=== PATIENT | female | born 2000 | race Caucasian/White ===

== ENCOUNTER → 2021-10-20 | Outpatient (CLI) | payer OTHER ==
[2021-10-20 14:29] LABS: CLUE CELLS PRESENT (Not Observd)
== END ==
LOC: LAB 09:40
PROVIDERS: Nurse Practitioner
DX: R30.9 Painful micturition, unspecified (principal)
CPT/HCPCS: Q0111

== ENCOUNTER 2022-02-13 18:18 | Emergency (ER) | payer OTHER ==
[~2022-02-13] VITALS: Ht 165.1 cm; Wt 47.3 kg
[2022-02-13 19:46] LABS: URINE WBC 0 /hpf (0-3)
[2022-02-13 20:10] LABS: URINE APPEARANCE CLEAR; URINE BILIRUBIN NEGATIVE (NEGATIVE); URINE BLOOD NEGATIVE (NEGATIVE); URINE COLOR STRAW; URINE GLUCOSE NEGATIVE (NEGATIVE); URINE KETONE NEGATIVE (NEGATIVE); URINE LEUKOCYTE ESTERASE NEGATIVE (NEGATIVE); URINE NITRATE NEGATIVE (NEGATIVE); URINE PROTEIN(semi-quant) NEGATIVE (NEGATIVE); URINE UROBILINOGEN NORMAL (NORMAL)
[2022-02-13 20:34] LABS: BASO # 0.02 K/mm3 (0.02-0.10); EOS % 4.2 % (0.1-4.0); HEMATOCRIT 37.5 % (35.0-45.0); LYMPH# 2.21 K/mm3 (1.20-3.40); MEAN CELL VOLUME 91 fl (78-95); MEAN CORPUSCULAR HEMOGLOBIN 31 pg (26-32); MEAN CORPUSCULAR HGB CONC 35 g/dL (33-37); MEAN PLATELET VOLUME 9.6 fl (7.4-10.4); MONO # 0.78 K/mm3 (0.10-0.60); PLATELET COUNT 237 K/mm3 (130-400); RED BLOOD COUNT 4.14 M/mm3 (4.10-5.30); RED CELL DISTRIBUTION WIDTH 11.8 % (11.5-14.5); WHITE BLOOD COUNT 7.2 K/mm3 (4.8-10.8)
[2022-02-13 20:43] LABS: ALBUMIN 4.6 g/dL (3.5-5.0); POTASSIUM 3.7 mmol/L (3.5-5.1)
[2022-02-13 20:44] LABS: CALCIUM 9.8 mg/dL (8.3-10.5)
[2022-02-13 20:47] LABS: TOTAL BILIRUBIN 0.3 mg/dL (0.2-1.2)
[2022-02-13 21:28] VITALS: BP 108/77
== END 2022-02-13 21:28 | disposition home or self-care (01) ==
LOC: ED 18:18
PROVIDERS: Family Medicine
DX: B34.9 Viral infection, unspecified (principal); R53.81 Other malaise; Z20.822 Contact with and (suspected) exposure to COVID-19; Z28.310 Unvaccinated for COVID-19

== ENCOUNTER → 2023-05-19 | Outpatient (CLI) | payer OTHER ==
[~2023-05-19] MED LIST: ESTARYLLA 35 MC1 TAB PO
== END ==
LOC: RAD 18:52
DX: M25.572 Pain in left ankle and joints of left foot (principal)

== ENCOUNTER → 2023-08-03 | Outpatient (CLI) | payer OTHER, BC ==
[~2023-08-03] MED LIST changes: +PHENERGAN 25 TA25 MG PO
== END ==
LOC: RAD 09:53
DX: R10.9 Unspecified abdominal pain (principal)

== ENCOUNTER 2023-10-14 09:07 | Emergency (ER) | payer OTHER, BC ==
[~2023-10-14] VITALS: Ht 162.6 cm; Wt 54.5 kg
[2023-10-14 10:02] VITALS: BP 132/94
[2023-10-14] MEDS ORDERED: Doxycycline Monohydrate 100 MG CAP PO ONE (10:15)
== END 2023-10-14 12:13 | disposition home or self-care (01) ==
LOC: ED 09:07
DX: S40.261A Insect bite (nonvenomous) of right shoulder, initial encounter (principal); W57.XXXA Bitten or stung by nonvenomous insect and other nonvenomous arthropods, initial encounter

== ENCOUNTER → 2023-11-20 | Outpatient (CLI) | payer BC, OTHER ==
[2023-11-20 10:42] LABS: CLUE CELLS NOT OBSERVED (Not Observd)
== END ==
LOC: LAB 10:07
PROVIDERS: Family Medicine
DX: B37.31 Acute candidiasis of vulva and vagina (principal)
CPT/HCPCS: Q0111